=== PATIENT | female | born 1950 | race Caucasian/White ===

== ENCOUNTER 2021-08-16 15:50 | Emergency (ER) | payer OTHER, SELFPAY ==
[2021-08-16 15:54] VITALS: BP 129/56; PULSE 92; RESP 17; TEMP 36.5; O2SAT 96
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
[2021-08-16] MEDS: Ketorolac 30 MG/ML VIAL IM (16:24)
[2021-08-16] MEDS: Methocarbamol 500 MG TAB 1000 MG PO (16:24)
[2021-08-16] MEDS: Lidocaine 5% Patch 1 PATCH TP (16:24)
[2021-08-16] MEDS: Acetaminophen 325 MG TAB 650 MG PO (16:24)
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
== END 2021-08-16 18:00 | disposition home or self-care (01) ==
PROVIDERS: Emergency Provider Physician Assistant
DX: S16.1XXA Strain of muscle, fascia and tendon at neck level, initial encounter (principal); M62.838 Other muscle spasm; M41.9 Scoliosis, unspecified; M40.202 Unspecified kyphosis, cervical region; V89.2XXA Person injured in unspecified motor-vehicle accident, traffic, initial encounter
CPT/HCPCS: 99284; 72125; J1885